=== PATIENT | female | born 1955 | race Caucasian/White ===

== ENCOUNTER 2016-08-09 08:06 | Outpatient (CLI) | payer OTHER ==
[2016-08-09] MEDS ORDERED: WATER FOR INJ (PF) 10 ML ONE (10:13)
[2016-08-09] MEDS ORDERED: KINEVAC IV ONE ×2 (10:14→10:22)
[2016-08-09] MEDS ORDERED: WATER FOR INJ (PF) IV ONE (10:25)
--- NOTE | 2016-08-09 11:52 | Nuclear Medicine Report ---
HEPATOBILIARY SCAN: History: Right upper quadrant pain. Following the injection of the radionuclide, serial scanning was obtained over the right upper quadrant. Initial imaging of the liver demonstrates a relatively normal activity pattern. Progressive concentration of the radionuclide in the bile ducts, with filling of both the gallbladder and small bowel, is identified within a normal time period. The gallbladder ejection fraction measures 45%. The patient reports no symptoms during the infusion of CCK. IMPRESSION: Normal biliary system.
== END 2016-08-09 08:07 | disposition home or self-care (01) ==
LOC: NM 08:06
PROVIDERS: ATTEND Internal Medicine Gastroenterology
DX: B18.1 Chronic viral hepatitis B without delta-agent (principal); R93.3 Abnormal findings on diagnostic imaging of other parts of digestive tract
CPT/HCPCS: 78227; A9537; J2805